=== PATIENT | male | born 1980 | race Caucasian/White ===

== ENCOUNTER 2020-02-12 10:41 | Outpatient (CLI) | payer OTHER | END 2020-02-12 23:59 | disposition home or self-care (01) | LOC: WOUND 10:41 | PROVIDERS: ATTEND Internal Medicine | DX: T22.311A Burn of third degree of right forearm, initial encounter (principal); Y93.89 Activity, other specified; Y92.89 Other specified places as the place of occurrence of the external cause; Y99.8 Other external cause status; X08.8XXD Exposure to other specified smoke, fire and flames, subsequent encounter | CPT/HCPCS: 99204 ==